=== PATIENT | male | born 1950 | race Caucasian/White ===

== ENCOUNTER → 2023-10-21 13:29 | Outpatient (REF) | payer OTHER, SELFPAY | LOC: RAD 13:29 | PROVIDERS: ATTENDING PHYSICIAN Surgery Vascular Surgery; FAMILY PHYSICIAN Internal Medicine | DX: I73.9 Peripheral vascular disease, unspecified (principal) | CPT/HCPCS: 93922; 93925 ==

== ENCOUNTER → 2023-10-22 11:24 | Outpatient (REF) | payer OTHER, SELFPAY | LOC: PAVMRI 11:24 | PROVIDERS: ATTENDING PHYSICIAN Chiropractor; FAMILY PHYSICIAN Internal Medicine | DX: M54.50 Low back pain, unspecified (principal) | CPT/HCPCS: 72148 ==

== ENCOUNTER → 2024-04-04 13:39 | Outpatient (REF) | payer OTHER, SELFPAY | LOC: RAD 13:39 | PROVIDERS: ATTENDING PHYSICIAN Surgery Vascular Surgery; FAMILY PHYSICIAN Internal Medicine | DX: I73.9 Peripheral vascular disease, unspecified (principal) | CPT/HCPCS: 93922; 93925 ==

== ENCOUNTER 2024-04-29 08:42 | Outpatient (RCR) | payer OTHER, SELFPAY ==
[2024-04-29 09:05] VITALS: BP 150/67
[2024-04-29] MEDS: SODIUM BICARBONATE 1150 MEQ IV (09:27)
== END 2024-05-03 09:50 | disposition home or self-care (01) ==
LOC: OID 08:42
PROVIDERS: ATTENDING PHYSICIAN Surgery Vascular Surgery
DX: I73.9 Peripheral vascular disease, unspecified (principal); Z92.89 Personal history of other medical treatment
CPT/HCPCS: 96365; 96366

== ENCOUNTER → 2024-04-29 09:44 | Outpatient (REF) | payer OTHER, SELFPAY | LOC: RAD 09:44 | PROVIDERS: ATTENDING PHYSICIAN Registered Nurse | DX: I73.9 Peripheral vascular disease, unspecified (principal) | CPT/HCPCS: 74174; Q9967 ==

== ENCOUNTER → 2024-06-01 08:06 | Outpatient (REF) | payer OTHER, SELFPAY | LOC: DHCBC/DCA 08:06 | PROVIDERS: ATTENDING PHYSICIAN Internal Medicine Cardiovascular Disease; FAMILY PHYSICIAN Internal Medicine | DX: I25.10 Atherosclerotic heart disease of native coronary artery without angina pectoris (principal); I10 Essential (primary) hypertension; I35.0 Nonrheumatic aortic (valve) stenosis | CPT/HCPCS: 78452; 93017; A9500; J2785 ==

== ENCOUNTER → 2024-06-09 09:08 | Outpatient (REF) | payer OTHER, SELFPAY | LOC: RCS 09:08 | PROVIDERS: ATTENDING PHYSICIAN Internal Medicine Cardiovascular Disease; FAMILY PHYSICIAN Internal Medicine | DX: I25.10 Atherosclerotic heart disease of native coronary artery without angina pectoris (principal); I10 Essential (primary) hypertension; I35.0 Nonrheumatic aortic (valve) stenosis | CPT/HCPCS: 93306 ==

== ENCOUNTER 2024-06-17 06:05 | Inpatient (IN) | payer OTHER, SELFPAY ==
[2024-06-14 09:12] VITALS: BMI 33.2
[2024-06-14 09:41] LABS: % Basophils 0.6 % (0-2); % Eosinophils 5.4 % (0-6); % Immature Granulocytes 0.5 % (0-0.5); % Lymphocytes 34.8 % (20.5-51.1); % Monocytes 8.8 % (1.7-9.3); % Neutrophils 49.9 % (42.2-75.2); Absolute Basophils 0.1 10^3/uL (0-0.2); Absolute Eosinophils 0.4 10^3/uL (0-0.7); Absolute Lymphocytes 2.7 10^3/uL (1.2-3.4); Absolute Monocytes 0.7 10^3/uL (0.1-0.6); Absolute Neutrophils 3.8 10^3/uL (1.4-6.5); Hematocrit 43.7 % (39.0-52.0); Hemoglobin 14.6 g/dL (13.0-18.0); Mean Corp Hgb Conc. 33.4 g/dL (33.0-37.0); Mean Corpuscular Hgb 29.9 pg (27.0-31.0); Mean Corpuscular Volume 89.4 fL (80.0-94.0); Mean Platelet Volume 10.3 fL (7.4-10.4); Nucleated Red Blood Cells % 0 % (-); Platelet Count 169 10^3/uL (130-400); Red Blood Cell Count 4.89 10^6/uL (4.70-6.10); Red Cell Dist. Width 13.6 % (11.5-14.5); White Blood Cell Count 7.7 10^3/uL (4.8-10.8)
[2024-06-14 09:43] LABS: INR 0.97; PT 12.7 Sec (11.4-14.6)
[2024-06-14 09:44] LABS: APTT 32.2 Sec (23.4-35.0)
[2024-06-14 09:50] LABS: Blood Urea Nitrogen 20 mg/dl (9-20); Calcium 9.8 mg/dl (8.4-10.2); Carbon Dioxide 21 mmol/L (22-30); Chloride 105 mmol/L (98-107); Estimated Creatinine Clearance 61 ml/min; Glucose 170 mg/dl (70-99); Potassium 4.1 mmol/L (3.5-5.1); Sodium 140 mmol/L (135-145); eGFR 58.01
[2024-06-17] VITALS (19 sets, daily range): BP systolic 114–199; BP diastolic 56–108; BMI 33.2
[2024-06-17] MEDS: PERIDEX 0.12% ORAL RINSE 15 ML PO (07:04)
[2024-06-17] MEDS: BACTROBAN NASAL 1 GRAM NASAL (07:04)
[2024-06-17 07:12] LABS: Glucose - Point of Care 110 mg/dl (70-99)
--- NOTE | 2024-06-17 07:46 | PTCARENOTE ---
Dr Peña, anesthesiologist, at pt bedside speaking to pt.
--- NOTE | 2024-06-17 07:59 | HP.FOC2 ---
Addendum entered and electronically signed by MAJOR Haynes 06/17/24 16:24:
Correction to past medical history patient denies past medical history of HIV
Original Note:
Focused History & Physical
Chief Complaint
HPI:
Chief Complaint: Peripheral arterial disease
HPI / Indication for Planned Procedure: This is a 74-year-old male who presented to outside hospital for scheduled bilateral iliac artery intravascular lithotripsy with aortoiliac stent grafting to address inflow peripheral arterial disease. Plan
for access his bilateral femoral access, with bilateral intravascular lithotripsy, bilateral common iliac artery kissing stents, and AFX aortoiliac device. Patient presents and reports he is at his baseline health, denies recent fever, cough,
chills, chest pain, shortness of breath, trauma, nausea, vomiting, loose stools, abdominal pain, and/or recent hospitalization. We will proceed with planned operation with Dr. Jermaine Verdin III.
Relevant Past Medical History: Coronary Artery Disease, Diabetes, Hypertension and Other (Moderate aortic stenosis, degenerative disc disease, HIV, chronic kidney disease stage IIIb, obesity)
Relevant Social History: ETOH (History of alcohol abuse)
Relevant Past Surgical History: Positive for
Medication
See Medication form for detailed medications: Yes
Medication List (including Herbals & OTC):
pantoprazole 40 mg tablet,delayed release 40 mg PO DAILY Gastrointestinal issue 05/20/14
amlodipine 5 mg tablet 5 mg PO BID Blood pressure 03/27/22
empagliflozin 25 mg tablet (Jardiance) 25 mg PO DAILY Diabetes 03/27/22
ezetimibe 10 mg tablet 10 mg PO DAILY High cholesterol 03/27/22
hydrochlorothiazide 25 mg tablet 25 mg PO DAILY Fluid retention/Swelling 03/27/22
losartan 100 mg tablet 100 mg PO DAILY Blood pressure 03/27/22
magnesium oxide 500 mg PO TUFR Supplement 03/27/22
temazepam 15 mg capsule 15 mg PO HS sleep 03/27/22
metoprolol succinate 25 mg tablet,extended release 24 hr 25 mg PO DAILY #90 tabs 03/28/22
cyanocobalamin (vitamin B-12) 1 tab PO DAILY 06/10/24
evolocumab 140 mg/mL subcutaneous syringe (Repatha Syringe) 140 mg SC Q2W 06/10/24
zinc 1 tab PO WESA 06/10/24
aspirin 81 mg tablet,delayed release 81 mg PO DAILY 06/17/24
glimepiride 1 mg tablet 1 mg PO DAILY 06/17/24
gyfsugkljvgx-sxbfjzer-jmxnvh tablet (Multivitamin 50 Plus tablet) 1 tab PO MOTH 06/17/24
Medications Reviewed: Yes
Allergies and Reactions
Patient has Allergies: Yes
Noted Allergies and Reactions:
Allergy/AdvReac Type Severity Reaction Status Date / Time
animal dander Allergy Sneezing Verified 06/10/24 10:20
dexamethasone Allergy agitated, Verified 06/17/24 06:21
aggressive
Iodinated Contrast Media Allergy 'affects Verified 06/17/24 06:21
kidneys'
prednisone Allergy agitated Verified 06/17/24 07:11
and
aggressive
Hzaaisd-BAP-WcR Reductase Allergy myalgias Verified 06/17/24 06:21
Inhibitor
Pertinent Physical Exam
All Other Systems: Negative
Head/Neck: Normal
Lungs: Normal (Bilateral lungs CTA)
Heart: Other (RRR, positive for murmur)
Abdomen: Normal (Nontender, nondistended, rotund)
Extremities: Other (Unable to palpate distal pulses, bilateral radial pulse +1)
Neurological: Normal
Diagnosis / Assessment
Diagnosis: 74-year-old male with peripheral arterial disease, significant for inflow disease
Plan / Procedure
Plan: Will proceed with scheduled procedure with Dr. Jermaine Verdin III of bilateral intravascular lithotripsy, bilateral common iliac artery kissing stents, and AFX aortoiliac device
Anesthesia/Sedation to be done by Anesthesia Provider: Yes
--- NOTE | 2024-06-17 08:13 | PTCARENOTE ---
Pt states he did not get any instructions about pre surgical washing so he did not do pre op bathing instructions. Fransisca GONSALVES made aware. Pt did have CHG wipes done upon arrival to recovery room as well as receiving mipirocin and peridex. No
further treatment ordered at this time.
--- NOTE | 2024-06-17 08:18 | W.SUR.PREOP ---
Pre-Operative Surgical Note
-
I have examined this patient prior to the performance of the scheduled procedure.
The patient's condition is unchanged from the time of the current History and
Physical and the patient is able to undergo the scheduled procedure.
[2024-06-17 09:44] LABS: ACT-LR - POC 369 Seconds (116-155)
[2024-06-17 10:38] LABS: ACT-LR - POC 258 Seconds (116-155)
[2024-06-17 12:12] LABS: ACT-LR - POC 234 Seconds (116-155)
--- NOTE | 2024-06-17 12:40 | CON.INTV ---
Consultation
Consultation Request
Date/Time Consultation Requested: 06/17/2024-12:30 PM
Date/Time Consultation Performed: 06/17/2024-12:30 PM
Requesting Provider: Vascular surgery
Performing Provider: Dr. Torres
Reason for Consultation: Postoperative critical care management
Medical History
-
Chief Complaint: PAD
History of Present Illness:
74-year-old male with a history of hypertension, hyperlipidemia, CAD, aortic stenosis, HIV, chronic kidney disease who was noted to have significant PAD and underwent aortoiliac stenting-barrel lathe operator inside consulted for postoperative critical care
management 06/17/2024. Patient is seen postoperatively in the surgical intensive care. He denies any shortness of breath, chest pain, abdominal pain, leg swelling or weakness. He states that he is not sure if he snores but does not feel refreshed
and has some daytime somnolence.
Past Medical History
Past Medical History: None (Hypertension. Hyperlipidemia. PAD. CAD/stent/CABG. Aortic stenosis moderate. HIV. Diabetes. Chronic kidney disease stage IIIb. Obesity. History of alcohol abuse. GERD. Former smoker.)
Past Surgical History: None (CABG. Tonsillectomy. Hydrocele. ORIF left arm.)
Social History
Tobacco: Former Smoker
Alcohol: Former
Drug: None
Occupational Exposures: No known asbestos exposure
Environmental Exposures: no known tuberculosis exposure
Family History
Family History: Other (Father-alcohol abuse, diabetes and CAD. Mother-hypertension, renal disease and CHF. Maternal grandfather gastric cancer. Paternal cousin-hemodialysis)
Allergies / Home Medications
Allergies
Allergy/AdvReac Type Severity Reaction Status Date / Time
animal dander Allergy Sneezing Verified 06/10/24 10:20
dexamethasone Allergy agitated, Verified 06/17/24 06:21
aggressive
Iodinated Contrast Media Allergy 'affects Verified 06/17/24 06:21
kidneys'
prednisone Allergy agitated Verified 06/17/24 07:11
and
aggressive
Svpitno-ZHA-XxY Reductase Allergy myalgias Verified 06/17/24 06:21
Inhibitor
Home Medications
�Medication �Instructions �Recorded �Confirmed �Last Taken �Type
pantoprazole 40 mg tablet,delayed 40 mg PO DAILY Gastrointestinal 05/20/14 06/17/24 06/16/24 10:00 History
release issue
amlodipine 5 mg tablet 5 mg PO BID Blood pressure 03/27/22 06/17/24 06/17/24 04:30 History
empagliflozin 25 mg tablet 25 mg PO DAILY Diabetes 03/27/22 06/17/24 06/13/24 History
(Jardiance)
ezetimibe 10 mg tablet 10 mg PO DAILY High cholesterol 03/27/22 06/17/24 06/16/24 10:00 History
hydrochlorothiazide 25 mg tablet 25 mg PO DAILY Fluid 03/27/22 06/17/24 06/16/24 10:00 History
retention/Swelling
losartan 100 mg tablet 100 mg PO DAILY Blood pressure 03/27/22 06/17/24 06/17/24 04:30 History
magnesium oxide 500 mg PO TUFR Supplement 03/27/22 06/17/24 06/14/24 History
temazepam 15 mg capsule 15 mg PO HS sleep 03/27/22 06/17/24 06/16/24 22:00 History
metoprolol succinate 25 mg 25 mg PO DAILY #90 tabs 03/28/22 06/17/24 06/17/24 04:30 Rx
tablet,extended release 24 hr
cyanocobalamin (vitamin B-12) 1 tab PO DAILY 06/10/24 06/17/24 06/16/24 10:00 History
evolocumab 140 mg/mL subcutaneous 140 mg SC Q2W 06/10/24 06/17/24 06/16/24 12:00 History
syringe (Repatha Syringe)
zinc 1 tab PO WESA 06/10/24 06/17/24 06/15/24 History
aspirin 81 mg tablet,delayed 81 mg PO DAILY 06/17/24 06/17/24 06/17/24 04:30 History
release
glimepiride 1 mg tablet 1 mg PO DAILY 06/17/24 06/17/24 06/16/24 10:00 History
odztaseisuyg-qpgupoxa-rrdati 1 tab PO MOTH 06/17/24 06/17/24 06/16/24 10:00 History
tablet (Multivitamin 50 Plus
tablet)
Review of Systems
-
Unable to Obtain full review of systems at this time due to: Other (Per HPI)
Vitals / Labs / Diagnostic Testing
Vital Signs
Temp Pulse Resp BP Pulse Ox
98.2 F 81 20 199/89 98
06/17/24 06:15 06/17/24 06:15 06/17/24 06:15 06/17/24 06:15 06/17/24 06:15
Diagnostic Testing:
Physical Exam
-
Exam:
Well-nourished and well-developed in no apparent distress
HEENT-atraumatic, normocephalic
Neck-supple, no JVD, no bruit
Heart-regular rate and rhythm-no murmurs, rubs or gallops
Chest-clear to auscultation, no wheezes, crackles
Back-no tenderness
Abdomen-soft, nontender, nondistended, no hepatosplenomegaly
Extremities-no cyanosis, clubbing, edema and good peripheral pulses
Integument-intact, no rashes, lesions or ecchymosis
Neurology-alert and oriented, nonfocal motor and sensory exam
Assessment
-
74-year-old male with a history of hypertension, hyperlipidemia, CAD, aortic stenosis, HIV, chronic kidney disease who was noted to have significant PAD and underwent aortoiliac stenting-barrel lathe operator inside consulted for postoperative critical care
management 06/17/2024.
PAD status post aortoiliac stenting-Dr. Verdin 06/17/2024
Hyperglycemia
Conditions present prior to admission:
Hypertension.
Hyperlipidemia.
PAD.
CAD/stent/CABG.
Aortic stenosis moderate.
HIV.
Diabetes.
Chronic kidney disease stage IIIb.
Obesity.
History of alcohol abuse.
GERD.
Former smoker-quit when he had his bypass
CABG. Tonsillectomy. Hydrocele. ORIF left arm.
Plan
Postoperative surgical intensive care unit monitoring
Supplemental oxygen as needed
Incentive spirometry
Aspiration precautions
Neuro and vascular checks per protocol
Vascular surgery following-correspondence and operative notes reviewed
DVT prophylaxis
Early nutrition
Early mobilization
Outpatient pulmonary/sleep disorders Ehkprs-gy-cfeg factors for obstructive sleep apnea and former smoker
Critical care statement: A total of 50 minutes of critical care time was provided for this patient today. This includes management of unstable vital signs, evaluation of the patient at bedside, reviewing the patient's pertinent medical records
including radiographs, microbiology, laboratory evaluations, and discussion with primary team, consultants, pharmacy, nutrition, physical therapy, case management, charge nurse, critical care nursing, and respiratory therapy.
Diagnostic data:
Chest x-ray 03/27/2022-NAD
Chest x-ray 06/14/2024-NAD
Echocardiogram 06/09/2024-EF 55-60%, mild aortic stenosis, RJ 1.7 cm�
Lexiscan stress test 06/01/2024-small mild fixed apical defect, EF 52%, moderate risk study
Data Reviewed
-
EKG: Report reviewed by me
Radiology: Report reviewed by me
Medical Tests (Nuc Med, Echo etc): Report reviewed by me
Labs: Labs reviewed by me
Old Records: Reviewed
Critical Care Time (in minutes): 50
--- NOTE | 2024-06-17 12:45 | OR.RPT ---
Operative Report
Operative Report
Date of Operation: 06/17/2024
Pre Op Diagnosis: Debilitating bilateral lower extremity claudication with severe bilateral calcified aortoiliac occlusive disease
Post Op Diagnosis: Debilitating bilateral lower extremity claudication with severe bilateral calcified aortoiliac occlusive disease
Procedure:
1.) Intravascular lithotripsy to left common iliac artery stenosis (8 mm x 60 mm M5+ shockwave balloon)
2.) Intravascular lithotripsy to left external iliac artery stenosis (8 mm x 60 mm M5+ shockwave balloon)
3.) Intravascular lithotripsy to right common iliac artery stenosis (9 mm x 30 mm L6 shockwave balloon)
4.) Aortoiliac stent grafting using Endologix AFX device: 21�50/13�40
5.) Balloon angioplasty and stenting of left common iliac artery (overlapping [place] VBX stents 9 mm x 59 mm; 9 mm x 39 mm)
6.) Limb extension with balloon angioplasty and stenting of the right common iliac artery (10 mm x 80 mm Ovation iX limb)
7.) Diagnostic aortobiiliac arteriogram
8.) Right common femoral artery endarterectomy with patch angioplasty using bovine pericardium for arterial repair following endovascular intervention
9.) Pro-glide closure of the left common femoral artery access
10.) Ultrasound-guided percutaneous access to the bilateral common femoral arteries
Surgeon: Jermaine Verdin III, MD
Spanish Medical Interpreter: Airam Jorge MD PGY-8
Anesthesia: Sedation with local
Fluoroscopy:
57.4 min
2061 mGy
689.36 Gy.cm2
Complications: None
Estimated Blood Loss: 75 cc
History and Indications for Procedure: 74-year-old male with debilitating bilateral lower extremity claudication. Preoperative CT angiogram demonstrated severely calcified aortoiliac occlusive disease. I brought him to the operating room for
endovascular revascularization.
Procedure in Detail: Speedy Morris was correctly identified and placed supine on the operating table. After adequate induction of anesthesia the bilateral groins were prepped and draped in the usual sterile fashion. A timeout was performed with the
nursing and anesthesia staff confirming the patient's identity as well as the nature and laterality of the procedure.
Under ultrasound guidance, bilateral femoral artery sheath access was obtained. The arteries were patent but peripheral calcified plaque was identified. Ultrasound images of the femoral arteries were saved to the medical record. A pre-close
technique was attempted initially but the needles would not capture when fired. Therefore we proceeded with the case with a plan to cut down on the main body femoral access at the conclusion of the case. 7 Fr sheaths were placed into the bilateral
femoral access. The patient was systemically heparinized.
Based on the known calcified common iliac artery occlusive disease we had difficulty passing wires into the abdominal aorta initially. Therefore we proceeded as follows. On the left using a Quickcross catheter and Glidewire we were able to
navigate through the calcified left common iliac artery stenosis and into the abdominal aorta. Aortoiliac imaging was then performed with the Quickcross catheter in the abdominal aorta along with retrograde sheath shots bilaterally in order to
obtain roadmap imaging. I then exchanged out for a 0.014 wire through a Quickcross catheter. The iliac artery lesion was predilated with a 5 mm angioplasty balloon. Following this we then proceeded with intravascular lithotripsy. Due to the
heavily calcified nature of the arterial disease and in an effort to modify the calcium to achieve maximum luminal gain with endovascular intervention I elected to proceed with intravascular lithotripsy. A 8 mm x 60 mm M5+ shockwave balloon was
placed across the iliac artery stenosis under roadmap guidance. Alternating rounds of lithotripsy pulse delivery at sub-nominal pressure and angioplasty at nominal pressure was performed across the stenosis. In between rounds of pulse delivery and
angioplasty the balloon was deflated and repositioned under roadmap guidance. The entire length of calcified left common iliac artery and external iliac artery was treated. All 300 pulses were delivered. Following this I then exchanged out for
short floppy tip Amplatz wire. The snare catheter for the AFX device was then advanced over the Amplatz wire into the distal abdominal aorta.
On the right again using a Quickcross catheter and Glidewire we were able to navigate through the calcified right common iliac artery stenosis and into the abdominal aorta. I then exchanged out for a V18 wire. Due to the heavily calcified nature
of the arterial disease and in an effort to modify the calcium to achieve maximum luminal gain with endovascular intervention I elected to proceed with intravascular lithotripsy. A 9 mm x 30 mm L6 shockwave balloon was placed across the stenosis
under roadmap guidance. Alternating rounds of lithotripsy pulse delivery at sub-nominal pressure and angioplasty at nominal pressure was performed across the stenosis. In between rounds of pulse delivery and angioplasty the balloon was deflated and
repositioned under roadmap guidance. All 300 pulses were delivered. I then exchanged out for a Lunderquist wire.
Over the Lunderquist wire in the right femoral access I placed the AFX introducer sheath and advanced the radio-opaque sheath tip to the abdominal aorta. On the left the Amplatz wire was removed and the the En-Snare was then advanced through to the
catheter tip.
The contralateral limb wire of the AFX2 main body was introduced through the introducer sheath and advanced to the aortic bifurcation. The 22-40/13-40 AFX2 bifurcated main body was then loaded onto the Lunderquist wire and advanced through the
introducer sheath. The wire was snared from the contralateral side and pulled out the left femoral access and the AFX2 main body was advanced until the limbs were above the aortic bifurcation. The entire system was then pulled down onto the aortic
bifurcation. The main body was then deployed by pulling the control cord.
The contralateral limb was then deployed by pulling the yellow limb cover. Once this was completed I advanced a pigtail catheter over the contralateral limb wire until the tip was in contact with the wire lock. The contralateral limb was then pulled
as I advanced the pigtail up to release it from the wire lock. The wire was removed and the formed pigtail catheter was then advanced proximally. A floppy tip Amplatz wire was placed through the pigtail catheter. A retrograde sheath shot was
performed on the left to clearly visualize the iliac bifurcation. I then extended down to the iliac bifurcation initially placing a 9 mm x 59 mm [place] VBX stent. This was positioned into the AFX limb at the proximal aspect in order to provide
additional support for this limb and deployed in the desired location. A 9 mm x 39 mm [place] VBX stent was then extended distally to the iliac bifurcation.
The ipsilateral limb was deployed by pinning the inner core and retracting the AFX introducer sheath.
The delivery system was removed leaving the introducer sheath on the right. The right iliac limb was ballooned with an 8 mm angioplasty balloon. The dilator and introducer sheath were then advanced together to the aortic bifurcation. A Coda
balloon was introduced and used to profile the main body. A 10 mm x 80 mm Ovation iX iliac extension was placed on the right side going all the way to the iliac bifurcation. The limb was deployed in the desired location taking great care to
preserve the iliac bifurcation. The limb was then postdilated with a 10 mm angioplasty balloon along its entire length.
A completion aortogram demonstrated an excellent technical result. There was brisk flow through the aortoiliac stents. The iliac bifurcations were preserved bilaterally. No significant residual stenosis was identified.
A single Pro-glide closure device was then advanced through the left femoral access and successfully deployed. The knots were secured and hemostasis was achieved. Skin glue was applied.
I then made an oblique incision in the right groin centered on the AFX sheath. Electrocautery and sharp dissection were used to expose the common femoral artery access site. Proximal and distal control was obtained with vessel loops on the common
femoral artery. The sheath and wire were removed. The vessel loops were secured. A C-clamp was placed on the proximal common femoral artery under the inguinal ligament. There was disrupted posterior calcified plaque evident on inspection of the
artery. The arteriotomy was lengthened proximally and distally with Penaloza scissors. An endarterectomy was performed with a [place] elevator. The proximal plaque was pulled free with forceps. The distal plaque was removed with no distal intimal
flap identified. A precut piece of bovine pericardium was brought onto the field and used as a patch angioplasty. This was sewn in place with a running 5-0 Prolene suture. At the completion of the patch repair the proximal clamp and distal vessel
loop were released. There was an easily palpable pulse in the common femoral artery. The suture line was closely inspected for hemostasis which was achieved.
Sterile dressings were applied.
The patient tolerated the procedure well and was taken to the PACU in stable condition.
Attestation: I was present and responsible for the entire procedure
Signed:
Jermaine Verdin III, MD
[facility]
[phone] (mbxd)
[2024-06-17 12:59] LABS: Glucose - Point of Care 172 mg/dl (70-99)
[2024-06-17 13:07] LABS: Hematocrit 38.3 % (39.0-52.0); Hemoglobin 13.2 g/dL (13.0-18.0); Mean Corp Hgb Conc. 34.5 g/dL (33.0-37.0); Mean Corpuscular Hgb 31.1 pg (27.0-31.0); Mean Corpuscular Volume 90.3 fL (80.0-94.0); Platelet Count 147 10^3/uL (130-400); Red Blood Cell Count 4.24 10^6/uL (4.70-6.10); Red Cell Dist. Width 14.1 % (11.5-14.5); White Blood Cell Count 12.4 10^3/uL (4.8-10.8)
[2024-06-17 13:23] LABS: Blood Urea Nitrogen 17 mg/dl (9-20); Calcium 8.8 mg/dl (8.4-10.2); Carbon Dioxide 22 mmol/L (22-30); Chloride 106 mmol/L (98-107); Estimated Creatinine Clearance 61 ml/min; Glucose 176 mg/dl (70-99); Potassium 4.7 mmol/L (3.5-5.1); Sodium 140 mmol/L (135-145); eGFR 58.01
[2024-06-17] MEDS: NOVOLOG FLEXPEN-LOW RESISTANCE SC (14:59)
[2024-06-17] MEDS: BENADRYL 50 MG IV (14:59)
[2024-06-17] MEDS: SOLU-CORTEF 200 MG IV (14:59)
[2024-06-17] MEDS: NSS 1000 IV (14:59)
[2024-06-17 17:48] LABS: Glucose - Point of Care 164 mg/dl (70-99)
[2024-06-17] MEDS: NOVOLOG FLEXPEN-LOW RESISTANCE 1 UNITS SC (18:17)
[2024-06-17] MEDS: TYLENOL 650 MG PO (18:19)
--- NOTE | 2024-06-17 20:00 | PTCARENOTE ---
Assumed care of patient. Patient assessed, neurovascular checks done. Patient awake, alert and oriented in bed. Resting comfortably. A-line zeroed. garcia in place draining clear yellow urine. see flow sheet for full assessment. No complaints at this
time. Call chang within reach
[2024-06-17] MEDS: NORVASC 5 MG PO (21:23)
[2024-06-17] MEDS: HEPARIN 5000 UNITS SC (21:23)
[2024-06-17] MEDS: RESTORIL 15 MG PO (21:23)
[2024-06-17 22:32] LABS: Glucose - Point of Care 158 mg/dl (70-99)
[2024-06-18] VITALS (13 sets, daily range): BP systolic 125–171; BP diastolic 66–111; BMI 32.7; BMI 31.9
[2024-06-18 04:39] LABS: Hematocrit 34.8 % (39.0-52.0); Hemoglobin 11.8 g/dL (13.0-18.0); Mean Corp Hgb Conc. 33.9 g/dL (33.0-37.0); Mean Corpuscular Hgb 29.6 pg (27.0-31.0); Mean Corpuscular Volume 87.2 fL (80.0-94.0); Mean Platelet Volume 10.6 fL (7.4-10.4); Platelet Count 156 10^3/uL (130-400); Red Blood Cell Count 3.99 10^6/uL (4.70-6.10); Red Cell Dist. Width 14.3 % (11.5-14.5); White Blood Cell Count 14.8 10^3/uL (4.8-10.8)
[2024-06-18 05:00] LABS: INR 1.07; PT 13.7 Sec (11.4-14.6)
[2024-06-18 05:01] LABS: APTT 30.7 Sec (23.4-35.0)
[2024-06-18] MEDS: TYLENOL 650 MG PO (05:05)
[2024-06-18 05:18] LABS: Blood Urea Nitrogen 16 mg/dl (9-20); Carbon Dioxide 22 mmol/L (22-30); Chloride 107 mmol/L (98-107); Estimated Creatinine Clearance 72 ml/min; Glucose 120 mg/dl (70-99); Potassium 4.3 mmol/L (3.5-5.1); Sodium 140 mmol/L (135-145); eGFR > 60.00
--- NOTE | 2024-06-18 07:32 | W.PN.INTV ---
Today's Communication / Plan
Recommendations
Neurovascular checks
Wean oxygen
Increase activity
deline
Discontinue Verdin catheter
Likely transfer to telemetry-call pulmonary if respiratory issues arise
Assessment
-
74-year-old male with a history of hypertension, hyperlipidemia, CAD, aortic stenosis, HIV, chronic kidney disease who was noted to have significant PAD and underwent aortoiliac stenting-flying squad salesperson consulted for postoperative critical care
management 06/17/2024.
PAD status post aortoiliac stenting-Dr. Verdin 06/17/2024
Hyperglycemia
Conditions present prior to admission:
Hypertension.
Hyperlipidemia.
PAD.
CAD/stent/CABG.
Aortic stenosis moderate.
HIV.
Diabetes.
Chronic kidney disease stage IIIb.
Obesity.
History of alcohol abuse.
GERD.
Former smoker-quit when he had his bypass
CABG. Tonsillectomy. Hydrocele. ORIF left arm.
Plan
Hemodynamics stable and neurovascularly intact
Supplemental oxygen as needed-attempt to wean to room air
Incentive spirometry encouraged
Aspiration precautions
Neuro and vascular checks per protocol
Vascular surgery following-correspondence and operative notes reviewed
Begin to deline
Discontinue Verdin catheter
Physical therapy/Occupational Therapy
DVT prophylaxis
Early nutrition
Early mobilization
If remains hemodynamically stable then transfer to telemetry-call pulmonary if respiratory issues arise
Outpatient pulmonary/sleep disorders Gkrqni-qr-jxzq factors for obstructive sleep apnea and former smoker
Critical care statement: A total of 50 minutes of critical care time was provided for this patient today. This includes management of unstable vital signs, evaluation of the patient at bedside, reviewing the patient's pertinent medical records
including radiographs, microbiology, laboratory evaluations, and discussion with primary team, consultants, pharmacy, nutrition, physical therapy, case management, charge nurse, critical care nursing, and respiratory therapy.
Diagnostic data:
Chest x-ray 03/27/2022-NAD
Chest x-ray 06/14/2024-NAD
Echocardiogram 06/09/2024-EF 55-60%, mild aortic stenosis, RJ 1.7 cm�
Lexiscan stress test 06/01/2024-small mild fixed apical defect, EF 52%, moderate risk study
Subjective Dataa
Subjective Data
Date of Service:
Date of Service: June 18, 2024
Chief Complaint: Infrastructure Manager Follow Up and Pulmonary Follow Up
Subjective:
Feels well, no complaints of shortness of breath, chest pain or abdominal pain
Review of Systems
General: Other (Per HPI)
Objective Data
Data Reviewed
Vital Signs / I&O / Oxygen:
Vital Signs
Temp Pulse Resp BP Pulse Ox
98.5 F 86 15 151/73 95
06/18/24 07:00 06/18/24 06:00 06/18/24 06:00 06/18/24 03:01 06/18/24 06:00
Intake and Output
06/17/24 06/18/24 06/19/24
06:59 06:59 06:59
Intake Total 1215 / 1215
Output Total 1974
Balance -760 / -760
SaO2 95
Nasal Cannula flow liters per 2
minute
Physical Exam
General: Respiratory Distress (n) and Comfortable
HEENT: Normocephalic, Anicteric and Moist Mucous Membranes
Cardiovascular: Regular Rhythm
Respiratory: Wheeze (n), Crackles (n), Rhonchi, Non-Labored Respirations, Accessory Resp Muscle Use (n) and Stridor (n)
GI: Soft, Non Distended and Non Tender
Neurology: Awake, Alert and No Motor Deficits
Skin: Warm, Good Color, Cyanosis (n), Jaundice (n) and Rash (n)
Labs/Micro/Reports
Lab Data
06/18/24 04:15
06/18/24 04:15
Laboratory Results
06/18/24
04:15
PT 13.7
INR 1.07
APTT 30.7
[2024-06-18 07:41] LABS: Glucose - Point of Care 130 mg/dl (70-99)
--- NOTE | 2024-06-18 08:00 | PTCARENOTE ---
Received pt @ change of shift. Pt. AAOx3, denies pain. Neurovascular checks maintained [id number] flow sheet. SR w BBB w 1st degree AVB on monitor. SpO2 95% on RA. Afebrile. +BS, abd soft/round/obese. Verdin in place draining clear/yellow urine. R
groin ROEL dressing w c/d/i; L groin approximated w surgical glue, RN PROGRESSIVE CARE UNIT. # 18 L FA and #20 L hand patent, dressing c/d/i. L rad A-line transduced, calibrated, and monitored; all ports patent and secured; correlates w cuff pressures. Instructed on
how to report care concerns and call bernardo w in reach.
--- NOTE | 2024-06-18 08:18 | W.PN.VS ---
Today's Communication / Plan
-
See below.
Assessment/Plan
-
Assessment: 74 year old male POD#1 Aortoiliac stent grafting using Endologix AFX device and right common femoral artery endarterectomy with patch angioplasty using bovine pericardium for arterial repair following endovascular intervention
Plan:
Discontinue arterial line
Discontinue garcia catheter
Advanced to diabetic diet
OOB to chair with progression to ambulation as tolerated
PT/OT
Subjective Data
-
Date of Service: June 18, 2024
Patient seen and examined at bedside, offers no complaints. Reports eagerness for next steps to discharge.
Objective Data
-
Vital Signs
Temp Pulse Resp BP Pulse Ox
98.5 F 86 15 151/73 95
06/18/24 07:00 06/18/24 06:00 06/18/24 06:00 06/18/24 03:01 06/18/24 06:00
Intake and Output
06/17/24 06/18/24 06/19/24
06:59 06:59 06:59
Intake Total 1215 / 1215
Output Total 1974
Balance -760 / -760
Intake:
Oral fluids 480 / 480
IV fluids (Total) 735 / 735
NSS 635 / 635
Normosol 100 / 100
Output:
Urine, Garcia 1974
Lab Results
06/18/24 04:15
06/18/24 04:15
Calcium 9.0 mg/dl (8.4-10.2) 06/18/24 04:15
Physical Exam
-
NAD, AAOx3
No tachycardia
No dyspnea
ABD rotund, non-tender, non-distended
Right surgical site ROEL dressing, CDI, left puncture site CDI, exofin intact
BL DP pulse +2 palpable
Garcia catheter draining clear yellow urine
[2024-06-18] MEDS: VITAMIN B-12 100 MCG PO (09:20)
[2024-06-18] MEDS: NORVASC 5 MG PO ×2 (09:20→20:15)
[2024-06-18] MEDS: PROTONIX 40 MG PO (09:20)
[2024-06-18] MEDS: ZETIA 10 MG PO (09:20)
[2024-06-18] MEDS: FARXIGA 10 MG PO (09:20)
[2024-06-18] MEDS: ASPIR LOW (ENTERIC COATED) 81 MG PO (09:20)
[2024-06-18] MEDS: NOVOLOG FLEXPEN-LOW RESISTANCE SC ×3 (09:20→17:56)
[2024-06-18] MEDS: TOPROL XL 25 MG PO (09:21)
[2024-06-18] MEDS: ORETIC 25 MG PO (09:21)
[2024-06-18] MEDS: AMARYL 1 MG PO (09:23)
[2024-06-18] MEDS: COZAAR 100 MG PO (09:23)
[2024-06-18] MEDS: HEPARIN 5000 UNITS SC ×2 (09:24→20:16)
--- NOTE | 2024-06-18 09:48 | W.[place]-PDMP ---
[place]PD[place]
-
Checked the [place]- Pres[place] Drug Monitoring Program website, no red flags identified; safe to proceed with prescription.
[2024-06-18 11:57] LABS: Glucose - Point of Care 111 mg/dl (70-99)
--- NOTE | 2024-06-18 12:04 | PTCARENOTE ---
L rad A-line and d/c'd per orders. Pressure held until bleeding ceased and clean dressing applied. Verdin removed @ 0830 per orders. Assisted into BR to Am hygiene and small unmeasured void. S/P BR, stand by assisted into chair. Tolerating chair
position and meals. Neurovascular checks maintained- see flow sheet. Call bernardo coats in reach.
--- NOTE | 2024-06-18 16:42 | PTCARENOTE ---
Q1H neurovascular checks completed; Q4H checks maintained- see flow sheet. Pt. walked halls w PT. Tele pack applied and pt ad nelda in room. Gait steady. Remains OOB in chair. Voided 250mL of yellow urine in BR; bladder scanned for 16mL.
Tolerating meals. Call chang in reach.
[2024-06-18 17:44] LABS: Glucose - Point of Care 140 mg/dl (70-99)
--- NOTE | 2024-06-18 21:23 | PTCARENOTE ---
Handoff report received from off going RN. Dual RN neurovascular check completed. Palpable pulses. ROEL drain is intact to rt groin . Aquacel dressing is cdi. No hematoma to bilateral groin sites. Left groin with surgical glue. Plan of care for the
shift reviewed with the patient. Left hand IV flushed and the pt complained of pain with flush. IV removed and site bled. Pressure held for 10 minutes. Pt became very anxious that he 'another issue is happening' and complained of not being cared for
properly since arrival to the hospital. When informed that the patient was being transferred to a tele unit, the patient asked to speak to the accounting clerks supervisor. Automotive Machinist Arnulfo at the bedside. Pt verbalized of not being 'satisfied of not being informed
sooner.' Sinus tachy on the monitor. Breath sounds are clear and diminished at the bases. Abdomen is round and obese. + BS. The patient ambulates to the bathroom independently. Pt brushed his teeth. All needs are met at this time. Call chang within
reach.
[2024-06-18 21:39] LABS: Glucose - Point of Care 132 mg/dl (70-99)
--- NOTE | 2024-06-18 21:47 | PTCARENOTE ---
Report called to DANIKA Atkinson. Patient transferred by PCT.
--- NOTE | 2024-06-18 22:00 | PTCARENOTE ---
Received pt from ICU into room 2131. AAOx3. VSS. Pt ambulatory with no assistance. NSR on tele monitor. R groin dressing, CDI with Leonel drain intact. Neurovascular b/l LE, see proper documentation. Pt resting comfortably in bed, call chang within
reach.
[2024-06-19] MEDS: RESTORIL 15 MG PO (00:04)
[2024-06-19 03:37] VITALS: BP 128/63
[2024-06-19] MEDS: TYLENOL 650 MG PO (04:03)
[2024-06-19 05:20] VITALS: BMI 31.9
[2024-06-19] MEDS: COLACE 100 MG PO (06:04)
[2024-06-19 07:58] VITALS: BP 158/74
[2024-06-19 08:11] LABS: Glucose - Point of Care 152 mg/dl (70-99)
[2024-06-19] MEDS: PROTONIX 40 MG PO (09:03)
[2024-06-19] MEDS: COZAAR 100 MG PO (09:03)
[2024-06-19] MEDS: FARXIGA 10 MG PO (09:03)
[2024-06-19] MEDS: ASPIR LOW (ENTERIC COATED) 81 MG PO (09:03)
[2024-06-19] MEDS: ZETIA 10 MG PO (09:03)
[2024-06-19] MEDS: AMARYL 1 MG PO (09:03)
[2024-06-19] MEDS: VITAMIN B-12 100 MCG PO (09:03)
[2024-06-19] MEDS: TOPROL XL 25 MG PO (09:04)
[2024-06-19] MEDS: NORVASC 5 MG PO (09:04)
[2024-06-19] MEDS: HEPARIN 5000 UNITS SC (09:04)
[2024-06-19] MEDS: ORETIC 25 MG PO (09:04)
[2024-06-19] MEDS: NOVOLOG FLEXPEN-LOW RESISTANCE 1 UNITS SC (09:55)
--- NOTE | 2024-06-19 11:15 | W.PN.VS ---
Today's Communication / Plan
-
discharge home
Assessment/Plan
-
Assessment: 74 year old male POD#2 Aortoiliac stent grafting using Endologix AFX device and right common femoral artery endarterectomy with patch angioplasty using bovine pericardium for arterial repair following endovascular intervention
Plan:
ok for discharge
meds entered
follow up in two weeks
call with any questions
Subjective Data
-
Date of Service: June 19, 2024
looks great
no complaints
eager to go home
Objective Data
-
Vital Signs
Temp Pulse Resp BP Pulse Ox
98.4 F 89 18 158/74 95
06/19/24 07:58 06/19/24 07:58 06/19/24 07:58 06/19/24 07:58 06/19/24 07:58
Intake and Output
06/18/24 06/19/24 06/20/24
06:59 06:59 06:59
Intake Total 1215 / 1215 1320 / 1320
Output Total 1974 450 / 450
Balance -760 / -760 870 / 870
Intake:
Oral fluids 480 / 480 1320 / 1320
IV fluids (Total) 735 / 735
NSS 635 / 635
Normosol 100 / 100
Output:
Urine, Verdin 1974 450 / 450
Other:
Number of approximated MODERATE 3
amounts of urine
Lab Results
06/18/24 04:15
06/18/24 04:15
Calcium 9.0 mg/dl (8.4-10.2) 06/18/24 04:15
Physical Exam
-
rrr
ctab
dressing intact
feet warm
[2024-06-19 11:42] VITALS: BP 168/71
[2024-06-19] MEDS: NOVOLOG FLEXPEN-LOW RESISTANCE SC (12:26)
== END 2024-06-19 12:28 | disposition home or self-care (01) | DRG 269 ==
LOC: 2 NORTH 06:05
PROVIDERS: Nurse Practitioner; ADMITTING PHYSICIAN Surgery Vascular Surgery; CONSULT PHYSICIAN Internal Medicine Critical Care Medicine; FAMILY PHYSICIAN Internal Medicine
PROC: 04FD3ZZ Fragmentation of Left Common Iliac Artery, Percutaneous Approach (ICD-10-PCS; 2024-06-17)
PROC: 04FC3ZZ Fragmentation of Right Common Iliac Artery, Percutaneous Approach (ICD-10-PCS; 2024-06-17)
PROC: 04CK0ZZ Extirpation of Matter from Right Femoral Artery, Open Approach (ICD-10-PCS; 2024-06-17)
PROC: 04V03DZ Restriction of Abdominal Aorta with Intraluminal Device, Percutaneous Approach (ICD-10-PCS; 2024-06-17)
PROC: 04UK0KZ Supplement Right Femoral Artery with Nonautologous Tissue Substitute, Open Approach (ICD-10-PCS; 2024-06-17)
DX: E11.51 Type 2 diabetes mellitus with diabetic peripheral angiopathy without gangrene (principal); I70.213 Atherosclerosis of native arteries of extremities with intermittent claudication, bilateral legs; E11.22 Type 2 diabetes mellitus with diabetic chronic kidney disease; E11.65 Type 2 diabetes mellitus with hyperglycemia; I70.8 Atherosclerosis of other arteries; E78.00 Pure hypercholesterolemia, unspecified; I12.9 Hypertensive chronic kidney disease with stage 1 through stage 4 chronic kidney disease, or unspecified chronic kidney disease; N18.32 Chronic kidney disease, stage 3b; K21.9 Gastro-esophageal reflux disease without esophagitis; I35.0 Nonrheumatic aortic (valve) stenosis; I25.10 Atherosclerotic heart disease of native coronary artery without angina pectoris; I45.10 Unspecified right bundle-branch block; G47.33 Obstructive sleep apnea (adult) (pediatric); E66.9 Obesity, unspecified; Z68.31 Body mass index [BMI] 31.0-31.9, adult; Z95.1 Presence of aortocoronary bypass graft; Z79.82 Long term (current) use of aspirin; Z79.84 Long term (current) use of oral hypoglycemic drugs; Z79.899 Other long term (current) drug therapy; Z21 Asymptomatic human immunodeficiency virus [HIV] infection status; Z88.8 Allergy status to other drugs, medicaments and biological substances; Z95.5 Presence of coronary angioplasty implant and graft; Z87.891 Personal history of nicotine dependence; Z83.3 Family history of diabetes mellitus; Z82.49 Family history of ischemic heart disease and other diseases of the circulatory system; Z91.041 Radiographic dye allergy status
CPT/HCPCS: 88304; 88311; 36415; 37236; 71046; 80048; 82962; 85025; 85027; 85610; 85730; 86850; 86900; 86901; 97161; C1725; C1760; C1769; C1773; C1874; C1894; C2628; C9765; Q9967

== ENCOUNTER 2024-06-29 10:34 | Emergency (ER) | payer OTHER, SELFPAY ==
[2024-06-29 10:37] VITALS: BP 176/106
--- NOTE | 2024-06-29 11:22 | ED.GENMED ---
History of Present Illness
General
Chief Complaint: Male Genito-Urinary Symptoms
Source: patient
Exam Limitations: none
Time Seen by Provider: 06/29/24 11:08
Nursing documentation reviewed up to this point in time: agreed with
History of Present Illness
History of Present Illness:
74-year-old male with history of NIDDM, CAD, HTN, anxiety, renal insufficiency, HLD, GERD, depression, CO, PAD, aorto iliac stent grafting on 06/17/2024, had Verdin catheter removed on 06/18, is here for pain/burning in his penis when he urinates
since the catheter has been removed. He states the pain is improving. He denies fever or chills. Denies N/V or abdominal pain.
Past History
Past History
ED Past Medical History: CAD, GERD, HTN, Hypercholesterolemia and Psychiatric (Depression)
ED Past Surgical History: Cardiac, Orthopedic and Tonsilectomy
PSI?: No
Social History
Tobacco: Non-smoker
Alcohol: Former
Personal: Single
Living: alone
Family History
Family History: Unable to obtain
Review of Systems
Review of Systems
Allergies reviewed?: Yes
All Other Systems: ROS reviewed and negative except as documented in HPI and ROS
Constitutional: Denies fever or chills
Respiratory: Denies trouble breathing
Cardiac: Denies chest pain
ABD/GI: Denies abdominal pain or nausea
: Reports dysuria; Denies frequency, incontinence, difficulty voiding, urgency or bleeding
Musculoskeletal: Reports no symptoms
Skin: Reports no symptoms
Neurological: Reports no symptoms
Phy Exam
Physical Exam
Physical Exam:
GENERAL: No acute distress. A&Ox3.
CONSTITUTIONAL: Afebrile.
RESPIRATORY: Regular respirations, nonlabored, lungs clear.
CARDIOVASCULAR: Regular rate and rhythm, no murmurs, no rubs.
GI: Soft, rotund, nontender, normal BS
MUSCULOSKELETAL: Moves with ease. Well perfused.
SKIN: Warm, dry, pink
PSYCH: Normal mood and affect. Well kept, interactive and appropriate
NEUROLOGIC: Awake, alert and oriented. No focal neurological deficits
Course
Orders/Labs/Results
Orders:
Orders
06/29/24 11:18
Urinalysis Reflex To Culture Urgent
Date Specimen was Collected: 06/29/24
Time Specimen was Collected: 10:59
06/29/24 11:21
Phenazopyridine HCl [Pyridium] 100 mg PO NOW STA
06/29/24 11:26
Phenazopyridine HCl [Pyridium] 100 mg .ROUTE .STK-MED ONE
Abnormal Lab Results
06/29/24
11:18
Urine Glucose 3+ A
(Negative)
Vital Signs
Initial and Last Documented VS:
Initial Vital Signs
Temp Pulse Resp BP Pulse Ox
98.2 F 105 20 176/106 98
06/29/24 10:37 06/29/24 10:37 06/29/24 10:37 06/29/24 10:37 06/29/24 10:37
Last Documented Vital Signs
Temp Pulse Resp BP Pulse Ox
98.2 F 70 20 131/61 98
06/29/24 10:37 06/29/24 12:07 06/29/24 10:37 06/29/24 12:07 06/29/24 10:37
MDM/Problems Addressed
Differential Diagnosis Includes:
urethral irritation from Verdin catheter, UTI
MDM/Problems Addressed:
74-year-old male with history of NIDDM, CAD, HTN, anxiety, renal insufficiency, HLD, GERD, depression, CO, PAD, aorto iliac stent grafting on 06/17/2024, had Verdin catheter removed on 06/18, is here for pain/burning in his penis when he urinates
since the catheter has been removed. He states the pain is improving. He denies fever or chills. Denies N/V or abdominal pain.
AFebrile, NAD
Abdomen benign
Wound gely intact, no sign of infection
11:50 AM:
UA negative for infection
Rx for Pyridium given to patient to use as needed
*Critical Care Note
Total Time (30-74mins, 75-104mins- exclusive of procedures): Not Applicable
ED Attending Note
-
Portions of this chart may have been created with voice recognition software.� Occasional wrong word or��sound alike� substitutions may have occurred due to the inherent limitations of voice recognition software.
Discharge Plan
Departure
Patient Disposition: Home (Routine Discharge)
Date of Disposition: 06/29/24
Time of Disposition: 11:56
Patient with high blood pressure during this ER visit?: No
Condition: Good
Discharge Problem:
Dysuria
Prescriptions:
New
phenazopyridine [Pyridium] 100 mg tablet
100 mg PO TID PRN (Reason: Pain) Qty: 6 0RF
No Action
pantoprazole 40 MG tablet,delayed release (DR/EC)
40 mg PO DAILY
amlodipine 5 mg Tablet
5 mg PO BID
temazepam 15 mg Capsule
15 mg PO HS
magnesium oxide 500 mg Tablet
500 mg PO TUFR
hydrochlorothiazide 25 mg Tablet
25 mg PO DAILY
losartan 100 mg Tablet
100 mg PO DAILY
ezetimibe 10 mg Tablet
10 mg PO DAILY
Jardiance 25 mg Tablet
25 mg PO DAILY
metoprolol succinate 25 mg Tablet Extended Release 24 Hr
25 mg PO DAILY Qty: 90 5RF
Repatha Syringe 140 mg/mL Syringe
140 mg SC Q2W
cyanocobalamin (vitamin B-12)
1 tab PO DAILY
zinc
1 tab PO WESA
aspirin 81 mg Tablet,Delayed Release (Dr/Ec)
81 mg PO DAILY
glimepiride 1 mg Tablet
1 mg PO DAILY
Multivitamin 50 Plus Tablet
1 tab PO MOTH
oxycodone 5 mg Tablet
5 mg PO Q4HPRN PRN (Reason: moderate pain) Qty: 10 0RF
Referrals:
Alon Rudolph MD [Family Provider] - As needed
Activity Restrictions/Additional Instructions:
As we discussed, your urine shows no sign of infection.
I gave you a prescription for Pyridium to use in the next 3 days as needed
See your doctor if the pain persists beyond that time.
Interventions
Interventions:
*Risk Screen - Suicide Last Done: 06/29/24 10:39
*General Assessment Last Done: 06/29/24 10:39
*Neglect/Abuse Screening Last Done: 06/29/24 10:39
ED- Fall Risk Assessment Last Done: 06/29/24 11:28
*ED COVID-19 Vaccine History Last Done: 06/29/24 10:40
*Nursing Disposition Last Done: 06/29/24 12:07
ED-Male Genitourinary Assessment Last Done: 06/29/24 11:31
Discharge Date and Time
Discharge Date/Time: 06/29/24 12:08
Print Language: KHMER
[2024-06-29] MEDS: Pyridium 100 MG PO (11:26)
[2024-06-29 11:27] VITALS: BMI 32.1
[2024-06-29 11:34] LABS: Urine Albumin Trace (Neg - Trace); Urine Bilirubin Negative (Negative); Urine Character Clear (Clear); Urine Color Yellow; Urine Glucose 3+ (Negative); Urine Ketone Negative (Negative); Urine Leukocyte Negative (Negative); Urine Nitrite Negative (Negative); Urine Occult Blood Negative (Negative); Urine Urobilinogen Negative (Neg - 1+)
[2024-06-29 12:07] VITALS: BP 131/61
== END 2024-06-29 12:08 | disposition home or self-care (01) ==
LOC: EMR 10:34
PROVIDERS: EMERGENCY PHYSICIAN Emergency Medicine; FAMILY PHYSICIAN Internal Medicine
DX: R30.0 Dysuria (principal); E11.9 Type 2 diabetes mellitus without complications; E78.00 Pure hypercholesterolemia, unspecified; I10 Essential (primary) hypertension; I25.10 Atherosclerotic heart disease of native coronary artery without angina pectoris; K21.9 Gastro-esophageal reflux disease without esophagitis; N28.9 Disorder of kidney and ureter, unspecified; F41.9 Anxiety disorder, unspecified; I73.9 Peripheral vascular disease, unspecified; F32.A Depression, unspecified; I25.2 Old myocardial infarction; Z98.890 Other specified postprocedural states; Z79.82 Long term (current) use of aspirin; Z79.84 Long term (current) use of oral hypoglycemic drugs; Z91.041 Radiographic dye allergy status; Z88.8 Allergy status to other drugs, medicaments and biological substances; Z91.048 Other nonmedicinal substance allergy status
CPT/HCPCS: 99283; 81003

== ENCOUNTER → 2024-08-05 10:06 | Outpatient (REF) | payer OTHER, SELFPAY | LOC: RAD 10:06 | PROVIDERS: ATTENDING PHYSICIAN Physician Assistant; FAMILY PHYSICIAN Internal Medicine; REFERRING PHYSICIAN Surgery Vascular Surgery | DX: I73.9 Peripheral vascular disease, unspecified (principal) | CPT/HCPCS: 93922; 93925; 93978 ==

== ENCOUNTER 2024-08-24 13:03 | Emergency (ER) | payer OTHER, SELFPAY ==
[2024-08-24 13:05] VITALS: BP 120/83
--- NOTE | 2024-08-24 15:33 | ED.GENMED ---
History of Present Illness
General
Chief Complaint: Skin Problem
Source: patient
Exam Limitations: none
Time Seen by Provider: 08/24/24 14:34
Nursing documentation reviewed up to this point in time: agreed with
History of Present Illness
History of Present Illness:
74-year-old male with past medical history of heart disease hypertension presenting to the emergency department today after a ceramic bowl cut his right pointer finger overlying the DIP on the palmar aspect. Has had difficulty controlling bleeding
at home which prompted him to come to the ER. He does take a baby aspirin daily but does not take any other blood thinners or antiplatelet medications. Denies any numbness weakness or additional concerns. Denies significant discomfort. Unsure
when his last tetanus shot was.
Past History
Past History
ED Past Medical History: CAD, GERD, HTN, Hypercholesterolemia and Psychiatric (Depression)
ED Past Surgical History: Cardiac, Orthopedic and Tonsilectomy
PSI?: No
Social History
Tobacco: Non-smoker
Alcohol: Former
Personal: Single
Living: alone
Family History
Family History: Unable to obtain
Review of Systems
Review of Systems
Allergies reviewed?: Yes
All Other Systems: ROS reviewed and negative except as documented in HPI and ROS
Phy Exam
Physical Exam
Physical Exam:
GENERAL: Alert , in no apparent distress
EYE: pupils equal and reactive
NECK: Supple, no significant adenopathy.
ENT: o/p clr, mmm.
CARDIAC: Regular rate and rhythm .
LUNGS: Clear breath sounds bilaterally, no acute respiratory distress, no wheezes/rales/rhonchi
ABDOMEN: Soft, without focal tenderness, no r/g, no cvat
NEUROLOGICAL: Alert and oriented, no focal neuro deficits
SKIN: 2 cm laceration superficial overlying the DIP of the right index finger. Good range of motion strength of the finger no tendon involvement. Warm and dry, skin intact.
MUSCULOSKELETAL: No edema, well perfused.
PSYCH: Normal and appropriate interaction.
Course
Orders/Labs/Results
Orders:
Orders
08/24/24 15:34
Cephalexin Monohydrate [Keflex] 500 mg PO NOW STA
Tetanus/Diphth/Acelpertussis [Adacel] 0.5 ml IM .ONCE ONE
Vital Signs
Initial and Last Documented VS:
Initial Vital Signs
Temp Pulse Resp BP Pulse Ox
98.2 F 90 18 120/83 99
08/24/24 13:05 08/24/24 13:05 08/24/24 13:05 08/24/24 13:05 08/24/24 13:05
Last Documented Vital Signs
Temp Pulse Resp BP Pulse Ox
98.2 F 90 18 120/83 99
08/24/24 13:05 08/24/24 13:05 08/24/24 13:05 08/24/24 13:05 08/24/24 13:05
Procedures
Laceration Closure
Right Distal Second Finger:
Status of Wound: clean
Size of Wound in cm: 2
Description of Wound Edges: sharp
Preparation: cleaned with saline
Anesthesia: 1% Lidocaine and Digital-Regional
Revision/Debridement: routine- no revision and irrigate-direct pressure
Wound exploration: explored to base- no FB and no tendon involvement
Type of Closure: single layer closure
Skin Closure Material: 5-0 vicryl
Number of sutures: 4
MDM/Problems Addressed
MDM/Problems Addressed:
74-year-old male presenting to the emergency department today with concerns of a laceration to his right index finger from broken piece of ceramic prior to arrival. Difficulty controlling bleeding at home. On arrival vital signs are normal patient
no distress not on blood thinners. Very superficial but still bleeding moderately. This was cleaned thoroughly and closed with 4 dissolving stitches finger was also splinted otherwise patient stable for outpatient management was written for
antibiotic concern he does of a history of diabetes. Return precautions given.
*Critical Care Note
Total Time (30-74mins, 75-104mins- exclusive of procedures): Not Applicable
ED Attending Note
-
Portions of this chart may have been created with voice recognition software.� Occasional wrong word or��sound alike� substitutions may have occurred due to the inherent limitations of voice recognition software.
Discharge Plan
Departure
Patient Disposition: Home (Routine Discharge)
Date of Disposition: 08/24/24
Time of Disposition: 15:37
Patient with high blood pressure during this ER visit?: No
Condition: Good
Covid-19: Not Applicable
Discharge Problem:
Finger laceration
Instructions: Wound Care (DC)
Prescriptions:
New
cephalexin 500 mg tablet
500 mg PO TID 3 Days Qty: 9 0RF
No Action
pantoprazole 40 MG tablet,delayed release (DR/EC)
40 mg PO DAILY
amlodipine 5 mg Tablet
5 mg PO BID
temazepam 15 mg Capsule
15 mg PO HS
magnesium oxide 500 mg Tablet
500 mg PO TUFR
hydrochlorothiazide 25 mg Tablet
25 mg PO DAILY
losartan 100 mg Tablet
100 mg PO DAILY
ezetimibe 10 mg Tablet
10 mg PO DAILY
Jardiance 25 mg Tablet
25 mg PO DAILY
metoprolol succinate 25 mg Tablet Extended Release 24 Hr
25 mg PO DAILY Qty: 90 5RF
Repatha Syringe 140 mg/mL Syringe
140 mg SC Q2W
cyanocobalamin (vitamin B-12)
1 tab PO DAILY
zinc
1 tab PO WESA
aspirin 81 mg Tablet,Delayed Release (Dr/Ec)
81 mg PO DAILY
glimepiride 1 mg Tablet
1 mg PO DAILY
Multivitamin 50 Plus Tablet
1 tab PO MOTH
oxycodone 5 mg Tablet
5 mg PO Q4HPRN PRN (Reason: moderate pain) Qty: 10 0RF
phenazopyridine [Pyridium] 100 mg tablet
100 mg PO TID PRN (Reason: Pain) Qty: 6 0RF
Referrals:
Alon Rudolph MD [Family Provider] -
Activity Restrictions/Additional Instructions:
You came to the emergency department today with concerns of a laceration to your right sided index finger. This was closed with 4 dissolving stitches. Please keep the area clean covered. Return to the emergency department any worsening, new or
concerning symptoms. In the meantime please take Keflex to reduce risk of infection.
Interventions
Interventions:
*Risk Screen - Suicide Last Done: 08/24/24 15:07
*General Assessment Last Done: 08/24/24 15:07
*Neglect/Abuse Screening Last Done: 08/24/24 15:07
*ED COVID-19 Vaccine History Last Done: 08/24/24 15:07
ED-Skin Assessment Last Done: 08/24/24 15:08
Discharge Date and Time
Print Language: DOMINICAN
[2024-08-24] MEDS: ADACEL 0.5 ML IM (15:37)
[2024-08-24] MEDS: KEFLEX 500 MG PO (15:38)
== END 2024-08-24 15:43 | disposition home or self-care (01) ==
LOC: EMR 13:03
PROVIDERS: EMERGENCY PHYSICIAN Emergency Medicine; FAMILY PHYSICIAN Internal Medicine
DX: S61.210A Laceration without foreign body of right index finger without damage to nail, initial encounter (principal); W26.8XXA Contact with other sharp object(s), not elsewhere classified, initial encounter; Z23 Encounter for immunization; I25.10 Atherosclerotic heart disease of native coronary artery without angina pectoris; I10 Essential (primary) hypertension; E11.9 Type 2 diabetes mellitus without complications; K21.9 Gastro-esophageal reflux disease without esophagitis; E78.00 Pure hypercholesterolemia, unspecified; M48.00 Spinal stenosis, site unspecified; M19.90 Unspecified osteoarthritis, unspecified site; F32.A Depression, unspecified; Z79.82 Long term (current) use of aspirin; Z95.1 Presence of aortocoronary bypass graft; Z87.891 Personal history of nicotine dependence
CPT/HCPCS: 99283; 12001; 90471; 90715

== ENCOUNTER → 2025-02-09 09:47 | Outpatient (REF) | payer OTHER, SELFPAY | LOC: RAD 09:47 | PROVIDERS: ATTENDING PHYSICIAN Surgery Vascular Surgery | DX: I73.9 Peripheral vascular disease, unspecified (principal) | CPT/HCPCS: 93922; 93925; 93978 ==